=== PATIENT | female | born 1950 | race Caucasian/White ===

== ENCOUNTER → 2018-04-03 08:44 | Outpatient (CLI) | payer MEDICARE, SELFPAY ==
--- NOTE | 2018-04-09 16:53 | PM.PFT.1 ---
Pulmonary Function Test Referral & Results Date Patient Seen: 04/03/18 Requesting provider: Melony Carrizales Results: The spirometry demonstrates an FVC of 1.34 L which is 36% of predicted. The FEV1 was measured at 1.02 L which is 37% of predicted. The FEV1/FVC ratio was 77 which is 100% of predicted. Following the administration of bronchodilator there was no appreciable change, in fact worsening lung function. Lung volumes show an SVC of 2.4 L which is 74% of predicted. No diffusing capacity was performed The maximum voluntary ventilation was reduced. Interpretation: This study demonstrates severe obstructive lung disease without evidence of benefit following the administration of bronchodilator There is also [id number] restrictive lung disease present.
== END ==
PROVIDERS: Family Provider Family Medicine; PCP Family Medicine; Visit Provider Family Medicine
DX: J44.9 Chronic obstructive pulmonary disease, unspecified (principal); F17.201 Nicotine dependence, unspecified, in remission
CPT/HCPCS: 94010; 94060; 94726

== ENCOUNTER → 2018-04-27 16:06 | Outpatient (CLI) | payer MEDICARE, SELFPAY ==
[2018-04-27 17:32] LABS: Alanine Aminotransferase 23 IU/L (9-52); Albumin Globulin Ratio 1.1 (1.0-2.8); Alkaline Phosphatase 97 U/L (38-126); Aspartate Aminotransferase 28 IU/L (14-36); BUN Creatinine Ratio 26.3 (6-22); Bilirubin Total 0.5 mg/dL (0.2-1.3); Blood Urea Nitrogen 21 mg/dL (7-17); Calcium 9.4 mg/dL (8.4-10.2); Carbon Dioxide 30 mmol/L (22-32); Chloride 95 mmol/L (98-107); Estimated Glomerular Filt Rate > 60.0 mL/min (>60); Globulin 3.5 g/dL (1.7-4.1); Glucose 86 mg/dL (80-110); HEMOLYSIS < 15 (0-50); Potassium 4.6 mmol/L (3.4-5.1); Sodium 137 mmol/L (137-145); Total Protein 7.5 g/dL (6.3-8.2)
== END ==
PROVIDERS: Family Provider Family Medicine; PCP Family Medicine; Visit Provider Family Medicine
DX: F10.21 Alcohol dependence, in remission (principal); R79.89 Other specified abnormal findings of blood chemistry; I10 Essential (primary) hypertension; I50.9 Heart failure, unspecified
CPT/HCPCS: 36415; 80053

== ENCOUNTER 2018-06-29 06:39 | Emergency (ER) | payer MEDICARE, SELFPAY ==
[2018-06-25 15:59] VITALS: BMI 30.7
[2018-06-29] VITALS (9 sets, daily range): BP systolic 123–158; BP diastolic 65–88; PULSE 81–95; RESP 16–24; TEMP 36.7; O2SAT 66–94; BMI 30.4
--- NOTE | 2018-06-29 06:51 | DI.RAD.S_ITS ---
PROCEDURE: XR CHEST 1V INDICATIONS: SOB, hypoxia TECHNIQUE: One view of the chest was acquired. COMPARISON: [facility], CR, CHEST 1 VIEW, 03/06/2018, 13:13. [facility], CT, PE STUDY (CTA CHEST), 02/19/2018, 8:35. [facility], CR, CHEST 2 VIEW, 02/18/2018, 18:02. [facility], CR, CHEST 2 VIEW, 02/12/2018, 16:21. [facility], CR, CHEST 2 VIEW, 01/09/2018, 8:10. [facility], CR, CHEST 1 VIEW, 07/03/2017, 9:09. [facility], CR, CHEST 2 VIEW, 04/19/2017, 9:13. [facility], CT, PE STUDY (CTA CHEST), 08/19/2016, 19:55. FINDINGS: Surgical changes and devices: None. Lungs and pleura: No pleural effusions or pneumothorax. Lungs are clear. Mediastinum: Mediastinal contours appear normal. Heart size is normal. Bones and chest wall: Chronic left humerus fracture. Overlying soft tissues appear unremarkable. IMPRESSION: No acute cardiopulmonary disease process. Dictated by: Gaby Diggs MD, PhD on 06/29/2018 at 8:44 Approved by: Gaby Diggs MD, PhD on 06/29/2018 at 8:46
[2018-06-29] MEDS: ALBUTEROL/IPRATROPIUM 3 ML AMPUL INH (06:57)
[2018-06-29] MEDS: SODIUM CHLORIDE 0.9% 1,000 ML 150 ML IV (06:58)
[2018-06-29] MEDS: methylPREDNISolone 125 MG/2 ML VIAL IV (06:58)
[2018-06-29 07:16] LABS: Add Manual Diff / Slide Review NO; Basophils Percent Auto 0.5 % (0-2); Eosinophils Percent Auto 0.4 % (2-4); Hematocrit 41.7 % (36-46); Hemoglobin 13.9 g/dL (12.0-16.0); Lymphocytes Percent Auto 12.5 % (25-40); Mean Corpuscular HGB Conc 33.5 % (30-36); Mean Corpuscular Hemoglobin 29.2 PG (26-34); Mean Corpuscular Volume 87.2 fL (80-100); Monocytes Percent Auto 7.7 % (3-14); Neutrophils Absolute Auto 6600 /uL (3000-5900); Neutrophils Percent Auto 78.9 % (50-75); Platelet Count 208 X10^3/uL (150-400); Red Blood Cell Count 4.78 X10^6/uL (4.0-5.2); Red Cell Distribution Width 16.7 % (11.6-14.8); White Blood Cell Count 8.4 X10^3/uL (4.5-11.0)
[2018-06-29 07:35] LABS: Lactate (Lactic Acid) 1.1 mmol/L (0.7-2.1)
[2018-06-29 07:36] LABS: Blood Urea Nitrogen 12 mg/dL (7-17); Calcium 8.8 mg/dL (8.4-10.2); Carbon Dioxide 34 mmol/L (22-32); Chloride 85 mmol/L (98-107); Creatine Kinase 80 U/L (30-135); Estimated Glomerular Filt Rate > 60.0 mL/min (>60); Glucose 113 mg/dL (80-110); HEMOLYSIS < 15 (0-50); Magnesium 1.9 mg/dL (1.6-2.3); Sodium 127 mmol/L (137-145)
[2018-06-29 07:40] LABS: PCO2 ABG 63.5 mmHg (35-45); pH ABG 7.31 (7.35-7.45)
[2018-06-29 07:41] LABS: HCO3 ABG 32 mmol/L (23-27); Oxygen Saturation ABG 94 % (95-100); PO2 ABG 81 mmHg (80-105); TCO2 ABG 34 mmol/L (23-27)
[2018-06-29 07:42] LABS: Fractionated Inspired Oxygen 36
[2018-06-29 07:47] LABS: Troponin I < 0.012 ng/mL (0.01-0.034)
[2018-06-29 07:51] LABS: Procalcitonin < 0.05 ng/mL (<0.5)
[2018-06-29] MEDS: ALBUTEROL/IPRATROPIUM 3 ML AMPUL 6 ML INH (08:43)
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
== END 2018-06-29 09:43 | disposition home or self-care (01) ==
PROVIDERS: Emergency Medicine; Emergency Provider Emergency Medicine; Family Provider Family Medicine; PCP Family Medicine
DX: J44.1 Chronic obstructive pulmonary disease with (acute) exacerbation (principal)
CPT/HCPCS: 36415; 36591; 36600; 71045; 80048; 82550; 82553; 82805; 83605; 83735; 83880; 84145; 84484; 85025; 87040; 93005; 93010; 94640; 96361; 96374; 99284; 99285; J2930